=== PATIENT | male | born 1930 | race Caucasian/White ===

== ENCOUNTER 2017-12-09 11:11 | Day surgery (SDC) | payer OTHER ==
[2017-12-09] MEDS: CIPROFLOXACIN 400MG/D5W 200 ML IVPB (12:30)
[2017-12-09] MEDS ORDERED: IOHEXOL 300MG/ML 30 ML BTL (13:31)
[2017-12-09] MEDS ORDERED: NEOSTIGMINE 3 MG/3 ML SYRINGE (13:45)
[2017-12-09] MEDS ORDERED: GLYCOPYRROLATE 0.4 MG INJ (13:45)
[2017-12-09] MEDS ORDERED: LIDOCAINE 2% (SDV) 5 ML INJ (13:45)
[2017-12-09] MEDS ORDERED: ROCURONIUM 50 MG INJ (13:45)
[2017-12-09] MEDS ORDERED: PROPOFOL 20 ML (13:45)
[2017-12-09] MEDS ORDERED: SUCCINYLCHOLINE CHLORIDE 100 MG/5 ML SYG IV (13:45)
[2017-12-09] MEDS ORDERED: MEPERIDINE 100 MG INJ (13:45)
[2017-12-09] MEDS: IOHEXOL 300MG/ML 30 ML BTL (14:05)
[2017-12-09] MEDS ORDERED: hydrALAzine 20 MG INJ IV (15:00)
[2017-12-09] MEDS ORDERED: HYDROmorphONE 1 MG/5 ML IV SYRINGE IV ×3 (15:00)
[2017-12-09] MEDS ORDERED: MIDAZOLAM 1 MG/ML 2 ML INJ IV (15:00)
[2017-12-09] MEDS ORDERED: DIPHENHYDRAMINE 50 MG INJ IV (15:00)
[2017-12-09] MEDS ORDERED: LABETALOL HCL 20MG INJ IV (15:00)
[2017-12-09] MEDS ORDERED: FENTAnyl 50 MCG/ML VIAL IV ×3 (15:00)
[2017-12-09] MEDS ORDERED: MEPERIDINE 25 MG INJ IV (15:00)
[2017-12-09] MEDS ORDERED: OXYCODONE/ACETAMINOPHEN (5/325) TAB PO ×2 (15:00)
[2017-12-09] MEDS ORDERED: ONDANSETRON 4 MG INJ IV (15:00)
[2017-12-09] MEDS ORDERED: METOCLOPRAMIDE 10 MG INJ IV (15:00)
[2017-12-09] MEDS ORDERED: EPHEDrine SULFATE 50 MG/5 ML SYG IV (15:00)
== END 2017-12-09 16:30 | disposition home or self-care (01) ==
LOC: SDS 11:11
DX: N35.9 Urethral stricture, unspecified (principal); N32.0 Bladder-neck obstruction; I10 Essential (primary) hypertension; E78.5 Hyperlipidemia, unspecified; I25.10 Atherosclerotic heart disease of native coronary artery without angina pectoris; I25.2 Old myocardial infarction; E78.00 Pure hypercholesterolemia, unspecified
CPT/HCPCS: 52000

== ENCOUNTER → 2018-10-04 | Outpatient (CLI) | payer OTHER | END | disposition home or self-care (01) | LOC: C/S 10:05 | DX: I25.10 Atherosclerotic heart disease of native coronary artery without angina pectoris (principal) | CPT/HCPCS: 75571; 75571-59 ==